=== PATIENT | female | born 1945 | race Caucasian/White ===

== ENCOUNTER 2017-03-11 07:32 | Day surgery (SDC) | payer MEDICARE ==
[2017-03-11] MEDS ORDERED: Lactated Ringer's 500 ML IV ONE (08:30)
[2017-03-11] MEDS ORDERED: Propofol 10 mg/ml Inj (20 ML) ONE (10:07)
[2017-03-11] MEDS ORDERED: Midazolam 2 MG/2 ML VIAL ONE (10:07)
[2017-03-11 10:45] VITALS: TEMP 97.3
[2017-03-11 10:58] VITALS: BP 110/70; PULSE 72; RESP 16; O2SAT 100
== END 2017-03-11 11:27 | disposition home or self-care (01) ==
LOC: H.ENDO 07:32
PROVIDERS: ATTEND Internal Medicine Gastroenterology
DX: Z12.11 Encounter for screening for malignant neoplasm of colon (principal); I10 Essential (primary) hypertension; E11.9 Type 2 diabetes mellitus without complications; K57.30 Diverticulosis of large intestine without perforation or abscess without bleeding; D12.2 Benign neoplasm of ascending colon; K64.0 First degree hemorrhoids; R12 Heartburn
CPT/HCPCS: 43239; 45385; 88305; J2001; J2250; J2704; J7120

== ENCOUNTER 2017-05-22 15:45 | Emergency (ER) | payer MEDICARE ==
[2017-05-22 16:13] VITALS: BP 154/72; PULSE 92; RESP 16; TEMP 98.1; O2SAT 97
--- NOTE | 2017-05-22 16:32 | ED PDOC ---
Upper Extremity Pain/Injury Time Seen by Provider: 05/22/17 15:57 Chief Complaint (Nursing): Finger,Hand,&Wrist Chief Complaint (Provider): Left hand injury History Per: Patient History/Exam Limitations: no limitations Onset/Duration Of Symptoms: Hrs (about 3 hours) Current Symptoms Are (Timing): Still Present Additional Complaint(s): Patient is a 72 y/o female with a past medical history of a brain aneurysm, who presents to the ED complaining of pain in her left hand since injury about 4 hours prior to arrival. Patient reports she slippe dand fell, catching herself with her hand in order to avoid injury to her head. PCP: cannot recall Past Medical History Reviewed: Historical Data, Nursing Documentation, Vital Signs Vital Signs: Last Vital Signs Temp 98.1 F 05/22/17 16:12 Pulse 92 H 05/22/17 16:12 Resp 16 05/22/17 16:12 BP 154/72 H 05/22/17 16:12 Pulse Ox 97 05/22/17 16:12 - Medical History PMH: Anemia, Diabetes (type 2), HTN, Hyperlipidemia Denies: Chronic Kidney Disease - Surgical History Other surgeries: Brain surgery - aneurysm - Family History Family History: States: No Known Family Hx, Unknown Family Hx - Social History Current smoker - smoking cessation education provided: No Ex-Smoker (has not smoked in the last 12 months): No Alcohol: None Drugs: Denies - Immunization History Hx Tetanus Toxoid Vaccination: No Hx Influenza Vaccination: No Hx Pneumococcal Vaccination: No - Home Medications Home Medications: Ambulatory Orders Medication Instructions Recorded Aspirin [Aspirin Chewable] 81 mg PO DAILY 03/11/17 Atorvastatin [Lipitor] 40 mg PO DAILY 03/11/17 Lisinopril [Zestril] 20 mg PO DAILY 03/11/17 metFORMIN [glucOPHAGE] 850 mg PO BID 03/11/17 - Allergies Allergies/Adverse Reactions: Allergies Allergy/AdvReac Type Severity Reaction Status Date / Time No Known Allergies Allergy Verified 05/22/17 16:12 Review of Systems Musculoskeletal: Positive for: Hand Pain (Left wrist) Physical Exam - Reviewed Nursing Documentation Reviewed: Yes Vital Signs Reviewed: Yes - Physical Exam Appears: Positive for: Well, Non-toxic, No Acute Distress Head Exam: Positive for: ATRAUMATIC, NORMAL INSPECTION, NORMOCEPHALIC Skin: Positive for: Normal Color, Warm, Dry Eye Exam: Positive for: Normal appearance ENT: Positive for: Normal ENT Inspection Neck: Positive for: Normal Respiratory: Negative for: Accessory Muscle Use, Respiratory Distress Pulses-Radial (L): 2+ Pulses-Radial (R): 2+ Extremity: Positive for: Normal ROM, Tenderness, Deformity, Swelling, Other ( Distal ulnal radius tenderness, mild edema, (-) snuff box tenderness ) Neurologic/Psych: Positive for: Alert - ECG O2 Sat by Pulse Oximetry: 97 (RA) Pulse Ox Interpretation: Normal Medical Decision Making Medical Decision Making: Time: 16:16 Initial Plan: --Wrist, Left 3 Views X-Ray X-ray: Abnormal edge of the anterior distal radius. Appears chronic. Wrist splint placed. Follow-up with orthopedics or PMD. Scribe Attestation: Documented by Acosta Nino, acting as a scribe for Marzena Green PA-C Provider Scribe Attestation: All medical record entries made by the Scribe were at my direction and personally dictated by me. I have reviewed the chart and agree that the record accurately reflects my personal performance of the history, physical exam, medical decision making, and the department course for this patient. I have also personally directed, reviewed, and agree with the discharge instructions and disposition. Disposition - Clinical Impression Clinical Impression: Wrist injury - Disposition Referrals: Cyril Elam MD [Medical Doctor] - Disposition: Routine/Home Disposition Time: 16:45 Condition: GOOD Additional Instructions: Please follow-up with PMD or orthopedics for offical x-ray reports. Instructions: Wrist Sprain (ED) Forms: [employer] ([place])
--- NOTE | 2017-05-22 18:07 | RAD ---
PROCEDURE: Left Wrist Radiographs. HISTORY: wrist pain s/p FOOSH COMPARISON: None. FINDINGS: BONES: An impacted fracture of the radius is appreciated just proximal to the wrist and is likely articular. A dislocation or destructive bony lesion appreciable. Diffuse osteopenia suggests osteoporosis. JOINTS: Degenerative sclerosis appreciate throughout the articular cortices of the carpal carpal, carpal metacarpal and radiocarpal joints. SOFT TISSUES: Normal. OTHER FINDINGS: None. IMPRESSION: Impacted distal left radial fracture. No dislocation.
== END 2017-05-22 17:47 | disposition home or self-care (01) ==
LOC: H.ER 15:45
DX: S63.502A Unspecified sprain of left wrist, initial encounter (principal); W19.XXXA Unspecified fall, initial encounter; Y92.89 Other specified places as the place of occurrence of the external cause; E11.9 Type 2 diabetes mellitus without complications; E78.5 Hyperlipidemia, unspecified; I10 Essential (primary) hypertension; Z79.82 Long term (current) use of aspirin; Z79.84 Long term (current) use of oral hypoglycemic drugs; Z87.891 Personal history of nicotine dependence